=== PATIENT | male | born 1980 | race Hispanic/Latino ===

== ENCOUNTER 2016-08-26 03:06 | Emergency (ER) | payer SELFPAY ==
[~2016-08-26] VITALS: Ht 167.6 cm; Wt 90.9 kg
[~2016-08-26 03:06] MED LIST: GABA800T2 PO; HYDR-3740 PO; MELOXICAM; NAPR500T PO; TRAM50TA2 PO
[2016-08-26 03:10] VITALS: BP 133/87; PULSE 112; RESP 16; O2SAT 98
--- NOTE | 2016-08-26 03:20 | ED.REPORT ---
HPI-General Illness Date of Service Aug 26, 2016 ED Provider: Dr. Willie Pollard MD A 36 year old male with a history of asthma presents to the ED complaining of dyspnea that began 2 days ago. Associated symptoms included sinus pressure, rhinorrhea and a productive cough with white sputum. Patient has previously used an albuterol inhaler as needed, but does not currently have an inhaler at home. He denies any recent sick contacts. Nursing Notes Stated Complaint: DIFFICULTY BREATHING Chief Complaint: FLU/Cold Symptoms Nursing Notes Reviewed: Yes Allergies: Coded Allergies: No Known Allergies (Verified Allergy, Unknown, 04/26/16) Scheduled Gabapentin (Gabapentin) 800 Mg Tablet 800 MG PO TID Gabapentin (Gabapentin) 800 Mg Tablet 800 MG PO TID Oseltamivir Phosphate (Tamiflu) 75 Mg Capsule 75 MG PO BID Scheduled PRN Hydrocodone-Acetaminophen 10-325 mg (Hydrocodone-Acetaminophen 10-325 mg) 1 Each Tablet 1 TABLET PO Q6H PRN PRN For Pain Naproxen (Naprosyn) 500 Mg Tablet 500 MG PO BID PRN PRN For Pain Naproxen (Naprosyn) 500 Mg Tablet 500 MG PO BID PRN PRN For Pain Tramadol (Tramadol) 50 Mg Tablet 100 MG PO Q6H PRN PRN For Pain Miscellaneous Medications ([Meloxicam]) General Time Seen by MD: 03:20 Chief Complaint Other (Dyspnea) Hx Obtained From: Patient Arrived By: Walk-in Sudden in Onset?: No Onset Occurred: 2 days ago Symptom Duration: Since onset Associated with: Reports: Cough, Difficulty breathing, Nasal discharge Pertinent Negative: Pt denies other symptoms Recent Healthcare: No recent doctor visit, No recent hospitalization Past Medical History Past Medical History Previous calcaneal fracture s/p surgical fixation, with osteopenia from dissuse Reports: Asthma Past Surgical History right ankle surgery Smoking History Unknown if Ever Smoker Social History Recently moved from [place] Other Social History: Good social support, From out of town Ambulatory Status Independent Review of Systems Full Review of Systems Constitutional: Denies: Chills, Fever Ears / Nose / Throat: Reports: Nasal congestion, Sinus problem Respiratory: Reports: Dyspnea on exertion, Prod cough, white, Shortness of breath Cardiovascular: Denies: Chest pain GI: Denies: Abdominal pain, Nausea, Vomiting Allergy / Immune: Reports: Rhinorrhea Neurologic: Denies: Change LOC Complete sys rev & neg: except as marked. Physical Exam Vital Signs Vital Signs Date Time Temp Pulse Resp B/P Pulse Ox O2 Delivery O2 Flow Rate FiO2 08/26/16 04:17 36.9 115 20 147/92 97 Room Air 08/26/16 03:42 107 18 100 Room Air 08/26/16 03:10 36.9 112 16 133/87 98 Room Air Initial VS: Reviewed Extremities: Vascular intact, Neuro intact, No swelling, No tenderness Skin: Warm, Dry, No cyanosis Neurologic: Alert, Oriented, Nonfocal Psychiatric: Mood/affect normal, Behavior normal, Normal thought content General/Constitutional: Awake, Alert, No acute distress Head / Eyes: Atraumatic, Normocephalic, PERRL ENT: Atraumatic, Airway patent, Mucous membranes moist, Pharynx NL Nose: Positive: Rhinorrhea Neck: Atraumatic, Supple, Full range of motion, No adenopathy Respiratory / Chest: Atraumatic, Breath sounds NL, Breath sounds = bilat Cardiovascular: Heart rate NL, Regular rhythm, Heart sounds NL Abdomen: Atraumatic, Soft Interpretation & Diagnostics Lab Results Interpretation Lab Results Interpretation: Influenza A positive Re-Eval/Medical Decision Med Decision/Clinical Course 36-year-old who is just arrived from [place] presents with flu symptoms and in fact has flu. He is an asthmatic without a puffer and was given one here. He is discharged now with Tamiflu, given his primary respiratory diagnosis of asthma plus superimposed influenza. Discharge in stable condition. Time of Eval: 03:28 Patient Status: Condition improved Re-Evaluation/Progress Note: Patient is rechecked. He is informed of his results and diagnosis. All questions are addressed. He understands and agrees with the treatment plan to discharge. Counseled Regarding: Diagnosis, Need for follow-up, When/why to return to ED Discharge & Departure Primary Impression: Influenza due to influenza A virus Disposition: Home Discharge Condition All VS Reviewed: Yes Condition: Stable Patient Instructions: Influenza (ED) Additional Instructions: Albuterol two puffs every four hours as needed for cough. Ibuprofen four times daily for fever and aches. Follow-up with your doctor in the office. Consider getting a flu shot every year. Referrals: [facility] (PCP) [facility] Scribe Attestation Portions of this note were transcribed by Chandrika Perez. I, Dr. Pollard personally performed the history, physical exam and medical decision-making; I reviewed and confirmed the accuracy of the information in the transcribed note. Signed by: Galindo Leonardo, 08/26/16 0420. Willie Pollard MD Aug 26, 2016 03:20 CHANDRIKA PEREZ Aug 26, 2016 03:28
[2016-08-26] MEDS ORDERED: Albuterol-Ipratropium 3 mL Inhalation Solution NEB ONE (03:25)
[2016-08-26] MEDS ORDERED: _Albuterol-HFA 60 Puff Inhaler INHALATION PRN (03:25)
[2016-08-26] MEDS ORDERED: Dexamethasone 20 mg/2 mL Oral Solution PO ONE (03:25)
[2016-08-26 03:42] VITALS: PULSE 107; RESP 18; O2SAT 100
[2016-08-26] MEDS ORDERED: TAM75UDCAP PO (04:07)
[2016-08-26 04:17] VITALS: BP 147/92; PULSE 115; RESP 20; O2SAT 97
== END 2016-08-26 04:22 | disposition home or self-care (01) ==
LOC: SED 03:06
DX: J10.1 Influenza due to other identified influenza virus with other respiratory manifestations (principal); J34.89 Other specified disorders of nose and nasal sinuses; J45.909 Unspecified asthma, uncomplicated
CPT/HCPCS: 87804; 94640; 94664; 99284; J7620